=== PATIENT | male | born 1935 | race Caucasian/White ===

== ENCOUNTER 2019-03-10 07:22 | Observation (INO) | payer MEDICARE, OTHER ==
[~2019-03-10] VITALS: Ht 170.2 cm; Wt 95.1 kg
[2019-03-10 07:45] LABS: BASO # 0.1 (0.0-0.2); BASO % 0.5 % (0.0-2.0); EOS # 0.1 (0.0-0.7); GRAN # 10.9 (1.4-6.5); GRAN % 77.8 % (42.2-75.2); HEMATOCRIT 43.8 % (42.0-52.0); HEMOGLOBIN 14.7 g/dl (13.5-18.0); LYMPH # 1.5 (1.2-3.4); LYMPH % 10.4 % (20.0-51.0); MEAN CELL VOLUME 88 fl (80.0-100.0); MEAN CORPUSCULAR HEMOGLOBIN 30 pg (27.0-31.0); MEAN CORPUSCULAR HGB CONC 34 g/dl (33.0-37.0); MEAN PLATELET VOLUME 9.7 fl (7.4-10.4); MONO # 1.4 (0.1-0.6); MONO % 9.7 % (1.7-9.3); PLATELET COUNT 256 K/mm3 (130-400); RED BLOOD COUNT 4.98 M/mm3 (4.20-5.60); REDCELL DISTRIBUTION WIDTH-CV 14.2 % (11.5-14.5)
[2019-03-10 07:57] LABS: ALANINE AMINOTRANSFERASE 12 U/L (21-72); ALBUMIN 4.5 gm/dL (3.5-5.0); ALKALINE PHOSPHATASE 87 U/L (50-136); ANION GAP 14 mmol/L (7-16); AST,SGOT 43 U/L (15-37); BILIRUBIN,TOTAL 0.8 mg/dL (0.0-1.0); BLOOD UREA NITROGEN 21 mg/dL (9-20); CALCIUM 9.2 mg/dL (8.4-10.2); CARBON DIOXIDE 28 mmol/L (22-30); CHLORIDE 94 mmol/L (98-107); CREATININE, serum 1.28 (0.66-1.25); GLUCOSE 118 mg/dL (74-106); POTASSIUM 3.8 mmol/L (3.4-5.0); SODIUM 136 mmol/L (137-145)
[2019-03-10] MEDS ORDERED: ZYLOPRIM 300MG300 MG PO (07:57)
[2019-03-10] MEDS ORDERED: PROTONIX 40MG T40 MG PO (07:58)
[2019-03-10] MEDS ORDERED: NORVASC 5MG5 MG/TAB PO (07:58)
[2019-03-10] MEDS ORDERED: HCTZ 25MG TAB25 MG PO (07:59)
[2019-03-10] MEDS ORDERED: LOPRESSOR 550 MG/TAB PO (07:59)
[2019-03-10] MEDS ORDERED: SYNTHROID0.075 MG/T PO (08:01)
[2019-03-10] MEDS ORDERED: CORDARONE200 MG/TAB PO (08:02)
[2019-03-10] MEDS ORDERED: ASPIRIN 81M81 MG/TA2 PO (08:03)
[2019-03-10] MEDS ORDERED: PULMICORT0.25 MG/2 IH (08:04)
[2019-03-10] MEDS ORDERED: BROVANA15 MCG/2 M IH (08:04)
[2019-03-10 08:10] LABS: TROPONIN-I < 0.012 ng/mL (0.000-0.035)
[2019-03-10] MEDS ORDERED: PREDNISONE20 MG PO (08:24)
[2019-03-10] MEDS ORDERED: OMNICEF 300MG300 MG PO (08:24)
[2019-03-10] MEDS ORDERED: DOXYCYCLINE 10100 MG PO (08:24)
[2019-03-10 12:23] VITALS: BP 115/57; PULSE 93; TEMP 97.4
[2019-03-10 15:47] VITALS: BP 119/62; PULSE 73; TEMP 97.3
[2019-03-10 19:07] VITALS: BP 115/59; PULSE 82; TEMP 97.3
[2019-03-10 23:11] VITALS: BP 109/49; PULSE 72; TEMP 97.7
[2019-03-11] VITALS (11 sets, daily range): BP systolic 105–123; BP diastolic 51–65; PULSE 60–80; TEMP 97.6–98.2
[2019-03-11 07:25] LABS: THYROID STIMULATING HORMONE 0.867 uIU/mL (0.465-4.680)
[2019-03-11 07:31] LABS: TROPONIN-I < 0.012 ng/mL (0.000-0.035)
[2019-03-11 08:27] LABS: HEMATOCRIT 41.4 % (42.0-52.0); HEMOGLOBIN 13.9 g/dl (13.5-18.0); MEAN CELL VOLUME 88 fl (80.0-100.0); MEAN CORPUSCULAR HEMOGLOBIN 30 pg (27.0-31.0); MEAN CORPUSCULAR HGB CONC 34 g/dl (33.0-37.0); MEAN PLATELET VOLUME 10.3 fl (7.4-10.4); PLATELET COUNT 275 K/mm3 (130-400); RED BLOOD COUNT 4.69 M/mm3 (4.20-5.60); REDCELL DISTRIBUTION WIDTH-CV 14.3 % (11.5-14.5)
[2019-03-11 08:32] LABS: CREATININE, serum 1.23 (0.66-1.25); POTASSIUM 4.1 mmol/L (3.4-5.0)
[2019-03-11 10:10] LABS: BAND 4 % (0-10); LYMPHOCYTE 4 % (20.0-51.0); METAMYELOCYTE 1 % (0-0); NEUTROPHILS 91 % (42.0-75.2); PLATELET ESTIMATE NORMAL (NORMAL); TOXIC GRANULATION PRESENT
[2019-03-12] VITALS: BP 129/66; PULSE 70; TEMP 97.5
[2019-03-12 03:48] VITALS: BP 115/66; PULSE 69; TEMP 97.7
[2019-03-12 07:45] LABS: BASO % 0.1 % (0.0-2.0); GRAN # 13.2 (1.4-6.5); GRAN % 85.7 % (42.2-75.2); HEMATOCRIT 41.7 % (42.0-52.0); HEMOGLOBIN 13.9 g/dl (13.5-18.0); LYMPH % 6.8 % (20.0-51.0); MEAN CELL VOLUME 89 fl (80.0-100.0); MEAN CORPUSCULAR HEMOGLOBIN 30 pg (27.0-31.0); MEAN CORPUSCULAR HGB CONC 33 g/dl (33.0-37.0); MEAN PLATELET VOLUME 10.5 fl (7.4-10.4); MONO % 6.7 % (1.7-9.3); PLATELET COUNT 287 K/mm3 (130-400); RED BLOOD COUNT 4.68 M/mm3 (4.20-5.60); REDCELL DISTRIBUTION WIDTH-CV 14.6 % (11.5-14.5)
[2019-03-12 07:54] LABS: CREATININE, serum 1.25 (0.66-1.25); POTASSIUM 4.2 mmol/L (3.4-5.0)
[2019-03-12 09:34] VITALS: BP 117/66; PULSE 62; TEMP 97.2
[2019-03-12 11:10] VITALS: BP 134/82; PULSE 56; TEMP 96.3
[2019-03-12] MEDS ORDERED: ELIQUIS 5MG PO (11:45)
[2019-03-12] MEDS ORDERED: CORDARONE200 MG/TAB PO (11:46)
[2019-03-12] MEDS ORDERED: LOPRESSOR 550 MG/TAB PO (11:46)
[2019-03-12] MEDS ORDERED: PREDNISONE10 MG PO (11:49)
== END 2019-03-12 15:45 | disposition home or self-care (01) ==
LOC: COL.ER 07:22 → MEDICAL 11:12
PROVIDERS: Emergency Medicine; ADMIT Internal Medicine
DX: I48.91 Unspecified atrial fibrillation (principal); J44.1 Chronic obstructive pulmonary disease with (acute) exacerbation; I10 Essential (primary) hypertension; B34.8 Other viral infections of unspecified site; J90 Pleural effusion, not elsewhere classified; D72.829 Elevated white blood cell count, unspecified; E87.3 Alkalosis; G47.33 Obstructive sleep apnea (adult) (pediatric); M10.9 Gout, unspecified; K21.9 Gastro-esophageal reflux disease without esophagitis; E03.9 Hypothyroidism, unspecified; Z96.653 Presence of artificial knee joint, bilateral; Z79.82 Long term (current) use of aspirin; Z87.891 Personal history of nicotine dependence; Z80.9 Family history of malignant neoplasm, unspecified; I08.0 Rheumatic disorders of both mitral and aortic valves
CPT/HCPCS: 99232-AI; 99239; A4216; G0378; J0696; J1650; J2704; J2930; J3475; J7030; J7512

== ENCOUNTER 2019-03-27 07:58 | Day surgery (SDC) | payer MEDICARE, OTHER ==
[2019-03-27] VITALS (8 sets, daily range): BP systolic 109–123; BP diastolic 65–84; PULSE 68–75; TEMP 97–97.1
[~2019-03-27] VITALS: Ht 170.2 cm; Wt 91.5 kg
[~2019-03-27 07:58] MED LIST: ASPIRIN 81M81 MG/TA2 PO; BROVANA15 MCG/2 M IH; CORDARONE200 MG/TAB PO; DOXYCYCLINE 10100 MG PO; ELIQUIS 5MG PO; HCTZ 25MG TAB25 MG PO; LOPRESSOR 550 MG/TAB PO; NORVASC 5MG5 MG/TAB PO; OMNICEF 300MG300 MG PO; PREDNISONE10 MG PO; PREDNISONE20 MG PO; PROTONIX 40MG T40 MG PO; PULMICORT0.25 MG/2 IH; SYNTHROID0.075 MG/T PO; ZYLOPRIM 300MG300 MG PO
[2019-03-27] MEDS ORDERED: AMOXICILLIN 8751 TAB PO (08:40)
[2019-03-27 08:44] LABS: HEMATOCRIT 43.3 % (42.0-52.0); HEMOGLOBIN 14.5 g/dl (13.5-18.0); MEAN CELL VOLUME 89 fl (80.0-100.0); MEAN CORPUSCULAR HEMOGLOBIN 30 pg (27.0-31.0); MEAN CORPUSCULAR HGB CONC 34 g/dl (33.0-37.0); MEAN PLATELET VOLUME 9.9 fl (7.4-10.4); PLATELET COUNT 224 K/mm3 (130-400); RED BLOOD COUNT 4.87 M/mm3 (4.20-5.60); REDCELL DISTRIBUTION WIDTH-CV 14.6 % (11.5-14.5)
[2019-03-27 08:45] LABS: INR 1.3 (0.8-3.0); PROTHROMBIN TIME 14.8 SECONDS (9.7-12.8)
[2019-03-27 08:48] LABS: PARTIAL THROMBOPLASTIN TIME 34.4 SECONDS (26.0-37.0)
[2019-03-27] MEDS ORDERED: CHERRY EXTRACT PO (08:57)
[2019-03-27] MEDS ORDERED: LUTEIN20 M1 PO (08:58)
[2019-03-27 09:03] LABS: CALCIUM 8.9 mg/dL (8.4-10.2); CREATININE, serum 1.57 (0.66-1.25); POTASSIUM 3.7 mmol/L (3.4-5.0)
[2019-03-27 09:31] LABS: THYROID STIMULATING HORMONE 2.29 uIU/mL (0.465-4.680)
--- NOTE | 2019-03-27 09:31 | NUR ---
Initial visit; Patient and his thanked [employer] Programmer for offering comfort and prayer prior to his surgical procedure. [employer]mer offered God's blessings.
[2019-03-27] MEDS ORDERED: PACERONE200 MG PO (10:34)
[2019-03-27] MEDS ORDERED: COUMADIN 5MG5 MG/TAB PO (10:42)
--- NOTE | 2019-03-27 12:00 | NUR ---
Discharge instructions reviewed with pt/spouse. Pt/spouse voice understanding. Pt tolerating intake with no complications. Gag reflex was intact. Pt resumed home medications. IV was discontinued by [facility] [facility] student, Belk[employer]. All questions and concerns were answered to the best of my knowledge in regards to Amiodarone. Pt was discharged via w/c to the care of spouse in private vehicle with discharge instructions in hand.
== END 2019-03-27 12:15 | disposition home or self-care (01) ==
LOC: COL.CAR 07:58
PROVIDERS: Internal Medicine Cardiovascular Disease
DX: I48.0 Paroxysmal atrial fibrillation (principal); I10 Essential (primary) hypertension; G47.33 Obstructive sleep apnea (adult) (pediatric); M19.90 Unspecified osteoarthritis, unspecified site; E03.9 Hypothyroidism, unspecified; K21.9 Gastro-esophageal reflux disease without esophagitis; I08.0 Rheumatic disorders of both mitral and aortic valves; J44.1 Chronic obstructive pulmonary disease with (acute) exacerbation; Z79.01 Long term (current) use of anticoagulants; Z96.653 Presence of artificial knee joint, bilateral; Z79.82 Long term (current) use of aspirin; Z79.891 Long term (current) use of opiate analgesic; Z80.9 Family history of malignant neoplasm, unspecified
CPT/HCPCS: J2704

== ENCOUNTER 2019-04-22 12:25 | Emergency (ER) | payer MEDICARE, OTHER ==
[~2019-04-22] VITALS: Ht 172.7 cm; Wt 90.5 kg
[~2019-04-22 12:25] MED LIST changes: +AMOXICILLIN 8751 TAB PO; +CHERRY EXTRACT PO; +COUMADIN 5MG5 MG/TAB PO; +LUTEIN20 M1 PO; +PACERONE200 MG PO
[2019-04-22 12:37] VITALS: BP 137/60; TEMP 97.5
[2019-04-22 13:15] LABS: BASO # 0.1 (0.0-0.2); BASO % 0.9 % (0.0-2.0); EOS # 0.3 (0.0-0.7); EOS % 3.7 % (0-4.0); GRAN # 4.4 (1.4-6.5); GRAN % 65.5 % (42.2-75.2); HEMATOCRIT 42.8 % (42.0-52.0); HEMOGLOBIN 13.8 g/dl (13.5-18.0); LYMPH # 1.4 (1.2-3.4); LYMPH % 21.2 % (20.0-51.0); MEAN CELL VOLUME 89 fl (80.0-100.0); MEAN CORPUSCULAR HEMOGLOBIN 29 pg (27.0-31.0); MEAN CORPUSCULAR HGB CONC 32 g/dl (33.0-37.0); MEAN PLATELET VOLUME 9.6 fl (7.4-10.4); MONO # 0.6 (0.1-0.6); MONO % 8.3 % (1.7-9.3); PLATELET COUNT 253 K/mm3 (130-400); RED BLOOD COUNT 4.82 M/mm3 (4.20-5.60); REDCELL DISTRIBUTION WIDTH-CV 14.4 % (11.5-14.5)
[2019-04-22 13:21] LABS: CALCIUM 8.8 mg/dL (8.4-10.2); CREATININE, serum 1.24 (0.66-1.25)
[2019-04-22 13:53] LABS: INR 10.1 (0.8-3.0)
[2019-04-22 14:22] VITALS: PULSE 62
== END 2019-04-22 14:22 | disposition home or self-care (01) ==
LOC: COL.ER 12:25
PROVIDERS: Emergency Medicine
DX: R79.1 Abnormal coagulation profile (principal); J44.1 Chronic obstructive pulmonary disease with (acute) exacerbation; I48.91 Unspecified atrial fibrillation; I10 Essential (primary) hypertension; E03.9 Hypothyroidism, unspecified; Z79.82 Long term (current) use of aspirin; Z79.01 Long term (current) use of anticoagulants

== ENCOUNTER 2020-06-01 08:16 | Day surgery (SDC) | payer MEDICARE, OTHER ==
[~2020-06-01] VITALS: Ht 170.3 cm; Wt 96.0 kg
[2020-06-01 09:00] VITALS: BP 147/97; PULSE 70; TEMP 97.5
[2020-06-01] MEDS ORDERED: ZESTRIL 5MG5 MG PO (09:09)
[2020-06-01] MEDS ORDERED: PRAVACHOL 20MG20 MG PO ×2 (09:09)
[2020-06-01 09:11] LABS: HEMATOCRIT 37.2 % (42.0-52.0); HEMOGLOBIN 11.1 g/dl (13.5-18.0); MEAN CELL VOLUME 80 fl (80.0-100.0); MEAN CORPUSCULAR HEMOGLOBIN 24 pg (27.0-31.0); MEAN CORPUSCULAR HGB CONC 30 g/dl (33.0-37.0); MEAN PLATELET VOLUME 10.2 fl (7.4-10.4); PLATELET COUNT 291 K/mm3 (130-400); RED BLOOD COUNT 4.67 M/mm3 (4.20-5.60); REDCELL DISTRIBUTION WIDTH-CV 15.9 % (11.5-14.5)
[2020-06-01] MEDS ORDERED: CORDARONE200 MG/TAB PO (09:11)
[2020-06-01] MEDS ORDERED: COUMADIN 22.5 MG/TAB PO (09:12)
[2020-06-01 09:22] LABS: CALCIUM 8.5 mg/dL (8.4-10.2); CREATININE, serum 1.33 (0.66-1.25); POTASSIUM 4.4 mmol/L (3.4-5.0)
[2020-06-01 09:45] VITALS: BP 109/64; PULSE 57
--- NOTE | 2020-06-01 09:45 | NUR ---
REPORT FROM BRENDAN CLINE, PT RESTING IN BED AFTER CARDIOVERSION, CALLED FOR EKG. PT STATES HAVING NO PAIN OR SOB.
[2020-06-01 09:52] LABS: THYROID STIMULATING HORMONE 4.81 uIU/mL (0.465-4.680)
[2020-06-01 10:00] VITALS: BP 125/66; PULSE 58
[2020-06-01] MEDS ORDERED: COZAAR 25MG25 MG/TAB PO (10:07)
[2020-06-01] MEDS ORDERED: CHERATUSSIN AC240 ML PO (10:08)
[2020-06-01 10:15] VITALS: BP 123/72; PULSE 57
--- NOTE | 2020-06-01 10:15 | NUR ---
DR IRWIN INTO SEE PT AND DISCUSS NEW MEDICATION, ALSO CALLED CONCERNING MED UP DATE LIST.
[2020-06-01 10:30] VITALS: BP 118/65; PULSE 61
--- NOTE | 2020-06-01 10:30 | NUR ---
REVIEWED DISCHARGE INST. WITH PT, HAS A RX FOR COUGH MEDICINE GIVEN, HAS NEW RX FOR COZAAR SENT TO PHARMACY. ALSO REVIEWED ACTIVITY TODAY, FOLLOWUP APPTS ALSO GIVEN WITH VERBAL UNDERSTANDING. IV D'CD INTACT, PT UP, GAIT STEADY, DRESSED, DISCHARGED VIA W/C TO CAR WITH AT 1043
== END 2020-06-01 10:45 | disposition home or self-care (01) ==
LOC: COL.CAR 08:16
PROVIDERS: Internal Medicine Cardiovascular Disease
DX: I48.0 Paroxysmal atrial fibrillation (principal); J44.9 Chronic obstructive pulmonary disease, unspecified; G47.33 Obstructive sleep apnea (adult) (pediatric); I10 Essential (primary) hypertension; E03.9 Hypothyroidism, unspecified; I34.1 Nonrheumatic mitral (valve) prolapse; M19.90 Unspecified osteoarthritis, unspecified site; Z88.8 Allergy status to other drugs, medicaments and biological substances
CPT/HCPCS: J2704

== ENCOUNTER 2020-06-28 07:06 | Day surgery (SDC) | payer MEDICARE, OTHER ==
[2020-06-28] VITALS (8 sets, daily range): BP systolic 110–149; BP diastolic 57–91; PULSE 52–63; TEMP 97.7
[~2020-06-28] VITALS: Ht 170.3 cm; Wt 97.8 kg
[~2020-06-28 07:06] MED LIST changes: +CHERATUSSIN AC240 ML PO; +COUMADIN 22.5 MG/TAB PO; +COZAAR 25MG25 MG/TAB PO; +PRAVACHOL 20MG20 MG PO; +ZESTRIL 5MG5 MG PO
[2020-06-28] MEDS ORDERED: LOPRESSOR 225 MG/TAB PO (07:39)
[2020-06-28 08:01] LABS: HEMOGLOBIN 10.5 g/dl (13.5-18.0); MEAN CELL VOLUME 77 fl (80.0-100.0); MEAN CORPUSCULAR HEMOGLOBIN 23 pg (27.0-31.0); MEAN CORPUSCULAR HGB CONC 29 g/dl (33.0-37.0); MEAN PLATELET VOLUME 9.8 fl (7.4-10.4); PLATELET COUNT 296 K/mm3 (130-400); RED BLOOD COUNT 4.65 M/mm3 (4.20-5.60)
[2020-06-28 08:11] LABS: CALCIUM 8.7 mg/dL (8.4-10.2); CREATININE, serum 1.36 (0.66-1.25); MAGNESIUM 2.2 mg/dL (1.6-2.3); POTASSIUM 4.2 mmol/L (3.4-5.0)
[2020-06-28 08:14] LABS: INR 1.5 (0.8-3.0); PROTHROMBIN TIME 16.9 SECONDS (9.7-12.8)
[2020-06-28 08:16] LABS: HEMATOCRIT 35.7 % (42.0-52.0)
[2020-06-28 08:40] LABS: THYROID STIMULATING HORMONE 6.6 uIU/mL (0.465-4.680)
[2020-06-28] MEDS ORDERED: COZAAR 25MG25 MG/TAB PO (08:40)
[2020-06-28] MEDS ORDERED: PACERONE400 MG PO (10:46)
[2020-06-28] MEDS ORDERED: COZAAR 50MG50 MG/TAB PO (10:46)
--- NOTE | 2020-06-28 11:10 | NUR ---
Pt assisted out to 's car by wheelchair with personal belongings. Prior to discharge, pt has tolerated PO without difficulty. He is steady on feet in room. IV was DC'd with catheter intact. He expressed understanding of all discharge instructions.
== END 2020-06-28 11:10 | disposition home or self-care (01) ==
LOC: COL.CAR 07:06
PROVIDERS: Internal Medicine Cardiovascular Disease
DX: I48.0 Paroxysmal atrial fibrillation (principal); I08.0 Rheumatic disorders of both mitral and aortic valves; J44.9 Chronic obstructive pulmonary disease, unspecified; G47.33 Obstructive sleep apnea (adult) (pediatric); I10 Essential (primary) hypertension; E03.9 Hypothyroidism, unspecified; M19.90 Unspecified osteoarthritis, unspecified site; Z96.653 Presence of artificial knee joint, bilateral; Z79.82 Long term (current) use of aspirin; Z79.01 Long term (current) use of anticoagulants; Z87.891 Personal history of nicotine dependence
CPT/HCPCS: J2704

== ENCOUNTER 2020-07-01 18:02 | Emergency (ER) | payer MEDICARE, OTHER ==
[~2020-07-01] VITALS: Ht 170.2 cm; Wt 97.7 kg
[~2020-07-01 18:02] MED LIST changes: +COZAAR 50MG50 MG/TAB PO; +LOPRESSOR 225 MG/TAB PO; +PACERONE400 MG PO
[2020-07-01 18:13] VITALS: TEMP 97.7
[2020-07-01 18:54] LABS: BASO % 0.7 % (0.0-2.0); EOS % 0.7 % (0-4.0); GRAN # 4.5 (1.4-6.5); GRAN % 77.9 % (42.2-75.2); HEMATOCRIT 39.2 % (42.0-52.0); HEMOGLOBIN 11.2 g/dl (13.5-18.0); LYMPH # 0.7 (1.2-3.4); LYMPH % 12.5 % (20.0-51.0); MEAN CELL VOLUME 78 fl (80.0-100.0); MEAN CORPUSCULAR HEMOGLOBIN 22 pg (27.0-31.0); MEAN CORPUSCULAR HGB CONC 29 g/dl (33.0-37.0); MONO # 0.5 (0.1-0.6); MONO % 7.7 % (1.7-9.3); PLATELET COUNT 340 K/mm3 (130-400); RED BLOOD COUNT 5.01 M/mm3 (4.20-5.60); REDCELL DISTRIBUTION WIDTH-CV 16.3 % (11.5-14.5)
[2020-07-01 19:00] LABS: INR 2.1 (0.8-3.0); PROTHROMBIN TIME 23.3 SECONDS (9.7-12.8)
[2020-07-01 19:09] LABS: ALANINE AMINOTRANSFERASE 28 U/L (4-49); ALBUMIN 4.2 gm/dL (3.5-5.0); ALKALINE PHOSPHATASE 89 U/L (50-136); ANION GAP 9 mmol/L (7-16); AST,SGOT 59 U/L (15-37); BILIRUBIN,TOTAL 0.7 mg/dL (0.0-1.0); BLOOD UREA NITROGEN 16 mg/dL (9-20); CALCIUM 8.9 mg/dL (8.4-10.2); CARBON DIOXIDE 26 mmol/L (22-30); CHLORIDE 102 mmol/L (98-107); CREATININE, serum 1.34 (0.66-1.25); GLUCOSE 122 mg/dL (74-106); POTASSIUM 4.5 mmol/L (3.4-5.0); SODIUM 136 mmol/L (137-145); TOTAL PROTEIN 7.3 gm/dL (6.4-8.2)
[2020-07-01 19:20] LABS: TROPONIN-I < 0.012 ng/mL (0.000-0.035)
[2020-07-01 20:10] VITALS: BP 130/93; PULSE 98
== END 2020-07-01 20:12 | disposition home or self-care (01) ==
LOC: COL.ER 18:02
PROVIDERS: Nurse Practitioner Primary Care
DX: I48.91 Unspecified atrial fibrillation (principal); I48.92 Unspecified atrial flutter; I10 Essential (primary) hypertension; M10.9 Gout, unspecified; K21.9 Gastro-esophageal reflux disease without esophagitis; E03.9 Hypothyroidism, unspecified; J44.9 Chronic obstructive pulmonary disease, unspecified; Z87.891 Personal history of nicotine dependence; Z86.018 Personal history of other benign neoplasm; Z88.8 Allergy status to other drugs, medicaments and biological substances; Z79.01 Long term (current) use of anticoagulants; Z79.52 Long term (current) use of systemic steroids; Z79.82 Long term (current) use of aspirin; Z79.890 Hormone replacement therapy

== ENCOUNTER 2020-07-20 07:34 | Day surgery (SDC) | payer MEDICARE, OTHER ==
[~2020-07-20] VITALS: Ht 170.2 cm; Wt 98.5 kg
[2020-07-20 08:00] VITALS: BP 127/64; PULSE 85; TEMP 97.7
[2020-07-21 10:38] LABS: OSMOLALITY-SERUM 278 Osm/kg (275-300); SODIUM,RANDOM URINE 59 mmol/L
[2020-07-21 10:40] LABS: CALCIUM 8.7 mg/dL (8.4-10.2); CREATININE, serum 1.21 (0.66-1.25); INR 3.4 (0.8-3.0); MAGNESIUM 1.8 mg/dL (1.6-2.3); PARTIAL THROMBOPLASTIN TIME 43.4 SECONDS (26.0-37.0); POTASSIUM 4.1 mmol/L (3.4-5.0); THYROID STIMULATING HORMONE 4.13 uIU/mL (0.465-4.680)
[2020-07-21 12:17] LABS: BASO % 0.2 % (0.0-2.0); EOS % 0.6 % (0-4.0); GRAN # 4.1 (1.4-6.5); GRAN % 82.7 % (42.2-75.2); HEMATOCRIT 34.7 % (42.0-52.0); HEMOGLOBIN 10.2 g/dl (13.5-18.0); LYMPH # 0.4 (1.2-3.4); LYMPH % 7.3 % (20.0-51.0); MEAN CELL VOLUME 76 fl (80.0-100.0); MEAN CORPUSCULAR HEMOGLOBIN 22 pg (27.0-31.0); MEAN CORPUSCULAR HGB CONC 29 g/dl (33.0-37.0); MEAN PLATELET VOLUME 9.5 fl (7.4-10.4); MONO # 0.4 (0.1-0.6); MONO % 8.8 % (1.7-9.3); PLATELET COUNT 295 K/mm3 (130-400); RED BLOOD COUNT 4.56 M/mm3 (4.20-5.60); REDCELL DISTRIBUTION WIDTH-CV 15.9 % (11.5-14.5)
== END 2020-07-21 12:44 | disposition home or self-care (01) ==
LOC: COL.CAR 07:34
PROVIDERS: Internal Medicine Cardiovascular Disease
DX: I48.19 Other persistent atrial fibrillation (principal); I25.10 Atherosclerotic heart disease of native coronary artery without angina pectoris; I34.1 Nonrheumatic mitral (valve) prolapse; I10 Essential (primary) hypertension; J44.9 Chronic obstructive pulmonary disease, unspecified; G47.33 Obstructive sleep apnea (adult) (pediatric); K21.9 Gastro-esophageal reflux disease without esophagitis; M10.9 Gout, unspecified; M19.90 Unspecified osteoarthritis, unspecified site; R14.3 Flatulence; E03.9 Hypothyroidism, unspecified; Z96.653 Presence of artificial knee joint, bilateral; Z79.82 Long term (current) use of aspirin; Z79.01 Long term (current) use of anticoagulants; Z99.89 Dependence on other enabling machines and devices; Z79.899 Other long term (current) drug therapy; Z87.891 Personal history of nicotine dependence; Z20.822 Contact with and (suspected) exposure to COVID-19; Z80.9 Family history of malignant neoplasm, unspecified
CPT/HCPCS: J2704; J7120